=== PATIENT | male | born 1960 | race Caucasian/White ===

== ENCOUNTER 2017-05-05 15:28 | Inpatient (IN) | payer OTHER, MEDICARE ==
[~2017-05-05 15:28] MED LIST: ALBUTEROL SULFATE 2.5 MG/0.5 ML INH NEB SOLN INH; DEXTROSE 50% 50 ML SYRINGE IV; GLUCAGON FOR INJ 1 MG VIAL (J1610) SC; GLUCOSE 4 GM CHEW TABLET PO; zolPIDEM TARTRATE 5 MG TAB PO
[2017-05-05 16:21] LABS: BASO # 0.1 10^3/uL (0.0-0.2); BASO % 0.7 % (0.0-1.0); EOS # 0.4 10^3/uL (0.0-0.50); EOS % 3.8 % (0.0-3.0); HEMATOCRIT 44.8 % (42.0-52.0); HEMOGLOBIN 14.5 g/dl (14.0-18.0); IMMATURE GRANULOCYTE % 0.2 % (0-3.0); LYMPH # 1.6 10^3/uL (1.5-4.5); LYMPH % 17.2 % (24.0-44.0); MEAN CORPUSCULAR HEMOGLOBIN 28.3 pg (27.0-33.0); MEAN CORPUSCULAR HGB CONC 32.4 g/dl (32.0-36.5); MEAN CORPUSCULAR VOLUME 87.5 fl (80.0-96.0); MONO # 0.8 10^3/uL (0.0-0.8); MONO % 8.7 % (0.0-5.0); NEUTROPHILS # 6.6 10^3/uL (1.8-7.7); NEUTROPHILS % 69.4 % (36.0-66.0); PLATELET COUNT, AUTOMATED 264 10^3/uL (150-450); RED BLOOD COUNT 5.12 10^6/uL (4.30-6.10); RED CELL DISTRIBUTION WIDTH 14.6 % (11.5-14.5); WHITE BLOOD COUNT 9.5 10^3/uL (4.0-10.0)
[2017-05-05 16:34] LABS: INR 1.07
[2017-05-05 16:53] LABS: ALBUMIN 3.1 GM/DL (3.2-5.2); ALBUMIN/GLOBULIN RATIO 0.86 (1.00-1.93); ALKALINE PHOSPHATASE 375 U/L (45-117); ALT/SGPT 38 U/L (12-78); ANION GAP 8 MEQ/L (8-16); AST/SGOT 35 U/L (7-37); BLOOD UREA NITROGEN 22 MG/DL (7-18); CALCIUM LEVEL 8.7 MG/DL (8.5-10.1); CARBON DIOXIDE LEVEL 32 MEQ/L (21-32); CHLORIDE LEVEL 99 MEQ/L (98-107); CREATININE FOR GFR 1.12 MG/DL (0.70-1.30); GLOMERULAR FILTRATION RATE > 60.0 (>56); GLUCOSE, FASTING 192 MG/DL (70-100); MAGNESIUM LEVEL 1.9 MG/DL (1.8-2.4); POTASSIUM SERUM 3.7 MEQ/L (3.5-5.1); SODIUM LEVEL 139 MEQ/L (136-145); TOTAL PROTEIN 6.7 GM/DL (6.4-8.2); TROPONIN I 0.02 NG/ML (< 0.10)
[2017-05-05 16:57] LABS: THYROID STIMULATING HORMONE 0.342 uIU/ML (0.358-3.740)
[2017-05-05] MEDS: DIGOXIN INJ 0.5 MG/2 ML AMP (J1160) IV ×3 (17:17→20:14)
[2017-05-05] MEDS: METOPROLOL TART 25 MG TABLET PO (17:17)
[2017-05-05] MEDS: HumaLOG INSULIN (NovoLOG) PER UNIT SC ×2 (17:18→20:19)
[2017-05-05] MEDS: FUROSEMIDE 20 MG/2 ML VIAL (J1940) IV (17:18)
[2017-05-05] MEDS: ALBUTEROL SULFATE 2.5 MG/0.5 ML INH NEB SOLN INH (18:03)
[2017-05-05 18:12] LABS: APPEARANCE, URINE CLEAR (CLEAR); BACTERIA, URINE AUTO NEGATIVE (NEGATIVE); BILIRUBIN, URINE AUTO NEGATIVE (NEGATIVE); BLOOD, URINE BLOOD NEGATIVE (NEGATIVE); COLOR, URINE YELLOW (YELLOW); GLUCOSE, URINE (UA) AUTO 1+ mg/dL (NEGATIVE); KETONE, URINE AUTO NEGATIVE (NEGATIVE); LEUKOCYTE ESTERASE, URINE AUTO NEGATIVE (NEGATIVE); NITRITE, URINE AUTO NEGATIVE (NEGATIVE); PROTEIN, URINE AUTO 1+ mg/dL (NEGATIVE); RBC, URINE AUTO 1 /HPF (0-3); SPECIFIC GRAVITY URINE AUTO 1.013 (1.002-1.035); SQUAMOUS EPITHELIAL CELL UR AU 0 /HPF (0-6); WBC, URINE AUTO 0 /HPF (0-3)
[2017-05-05] MEDS: SPIRONOLACTONE 12.5MG PER 1/2 TABLET PO (18:32)
[2017-05-05] MEDS: ATORVASTATIN 20 MG TAB PO (20:10)
[2017-05-05] MEDS: DOCUSATE SODIUM 100 MG CAP PO (20:10)
[2017-05-05] MEDS: POTASSIUM CHLORIDE 10 MEQ SR TABLET PO (20:10)
[2017-05-05] MEDS: GABAPENTIN 300 MG CAP PO (20:10)
[2017-05-05] MEDS: APIXABAN 5 MG TAB (ELIQUIS) PO (20:11)
[2017-05-05] MEDS: LISINOPRIL 10 MG TAB PO (20:15)
[2017-05-05 20:50] LABS: BEDSIDE GLUCOSE 142 MG/DL (70-105)
[2017-05-05] MEDS ORDERED: ENOXAPARIN 40 MG/0.4 ML SYRINGE (J1650) SC (21:00)
[2017-05-06] MEDS: METOPROLOL TART 25 MG TABLET PO ×2 (00:23→05:04)
[2017-05-06] MEDS: FUROSEMIDE 20 MG/2 ML VIAL (J1940) IV ×5 (00:23→23:31)
[2017-05-06] MEDS: ACETAMINOPHEN TAB 650MG DOSE (2X325MG) PO (03:34)
[2017-05-06 06:29] LABS: ALBUMIN 2.9 GM/DL (3.2-5.2); ANION GAP 6 MEQ/L (8-16); BLOOD UREA NITROGEN 20 MG/DL (7-18); CALCIUM LEVEL 9.3 MG/DL (8.5-10.1); CARBON DIOXIDE LEVEL 31 MEQ/L (21-32); CHLORIDE LEVEL 103 MEQ/L (98-107); CREATININE FOR GFR 1.09 MG/DL (0.70-1.30); GLOMERULAR FILTRATION RATE > 60.0 (>56); GLUCOSE, FASTING 167 MG/DL (70-100); PHOSPHORUS LEVEL 3.6 MG/DL (2.5-4.9); POTASSIUM SERUM 3.5 MEQ/L (3.5-5.1); SODIUM LEVEL 140 MEQ/L (136-145); TROPONIN I 0.03 NG/ML (< 0.10)
[2017-05-06] MEDS: PANTOPRAZOLE 40MG TAB (PROTONIX) PO (08:05)
[2017-05-06] MEDS: POTASSIUM CHLORIDE 10 MEQ SR TABLET PO ×5 (08:05→20:28)
[2017-05-06] MEDS: HumaLOG INSULIN (NovoLOG) PER UNIT SC ×4 (08:05→20:26)
[2017-05-06] MEDS: SPIRONOLACTONE 12.5MG PER 1/2 TABLET PO (08:05)
[2017-05-06] MEDS: APIXABAN 5 MG TAB (ELIQUIS) PO ×2 (08:06→20:27)
[2017-05-06] MEDS: glipiZIDE (GLUCOTROL) 5 MG TAB PO ×2 (08:06→17:15)
[2017-05-06] MEDS: GABAPENTIN 300 MG CAP PO ×2 (08:06→20:27)
[2017-05-06] MEDS: DIGOXIN 0.25 MG TAB PO (08:06)
[2017-05-06] MEDS: LISINOPRIL 10 MG TAB PO ×2 (08:06→20:27)
[2017-05-06] MEDS: DOCUSATE SODIUM 100 MG CAP PO ×2 (08:07→20:27)
[2017-05-06] MEDS: ALBUTEROL SULFATE 2.5 MG/0.5 ML INH NEB SOLN INH ×4 (08:11→20:35)
[2017-05-06 11:43] LABS: BEDSIDE GLUCOSE 206 MG/DL (70-105)
[2017-05-06] MEDS: METOPROLOL TART 50 MG TAB PO ×3 (11:45→23:31)
[2017-05-06] MEDS ORDERED: METOPROLOL TART 50 MG TAB PO (12:00)
[2017-05-06 12:08] LABS: INR 1.29; PROTHROMBIN TIME 16.4 SECONDS (12.4-14.5)
[2017-05-06 17:01] LABS: BEDSIDE GLUCOSE 178 MG/DL (70-105)
[2017-05-06 20:23] LABS: BEDSIDE GLUCOSE 223 MG/DL (70-105)
[2017-05-06] MEDS: ATORVASTATIN 20 MG TAB PO (20:28)
[2017-05-07] MEDS: FUROSEMIDE 20 MG/2 ML VIAL (J1940) IV (05:24)
[2017-05-07] MEDS: METOPROLOL TART 50 MG TAB PO ×2 (05:25→08:06)
[2017-05-07 05:54] LABS: ALBUMIN 2.9 GM/DL (3.2-5.2); ANION GAP 6 MEQ/L (8-16); BLOOD UREA NITROGEN 26 MG/DL (7-18); CALCIUM LEVEL 9.1 MG/DL (8.5-10.1); CARBON DIOXIDE LEVEL 30 MEQ/L (21-32); CHLORIDE LEVEL 105 MEQ/L (98-107); CREATININE FOR GFR 1.12 MG/DL (0.70-1.30); GLOMERULAR FILTRATION RATE > 60.0 (>56); GLUCOSE, FASTING 232 MG/DL (70-100); PHOSPHORUS LEVEL 3.5 MG/DL (2.5-4.9); SODIUM LEVEL 141 MEQ/L (136-145)
[2017-05-07] MEDS: ALBUTEROL SULFATE 2.5 MG/0.5 ML INH NEB SOLN INH ×4 (06:59→20:23)
[2017-05-07] MEDS: HumaLOG INSULIN (NovoLOG) PER UNIT SC ×4 (08:02→20:26)
[2017-05-07] MEDS: glipiZIDE (GLUCOTROL) 5 MG TAB PO ×2 (08:04→17:16)
[2017-05-07] MEDS: DOCUSATE SODIUM 100 MG CAP PO ×2 (09:00→20:47)
[2017-05-07] MEDS: POTASSIUM CHLORIDE 10 MEQ SR TABLET PO ×4 (10:00→20:47)
[2017-05-07] MEDS: TORSEMIDE 20 MG TAB PO (10:00)
[2017-05-07] MEDS: SPIRONOLACTONE 12.5MG PER 1/2 TABLET PO (10:01)
[2017-05-07] MEDS: PANTOPRAZOLE 40MG TAB (PROTONIX) PO (10:01)
[2017-05-07] MEDS: GABAPENTIN 300 MG CAP PO ×2 (10:01→20:47)
[2017-05-07] MEDS: LISINOPRIL 10 MG TAB PO ×2 (10:03→20:47)
[2017-05-07] MEDS: APIXABAN 5 MG TAB (ELIQUIS) PO ×2 (10:03→20:45)
[2017-05-07] MEDS: DIGOXIN 0.25 MG TAB PO (10:05)
[2017-05-07 12:33] LABS: BEDSIDE GLUCOSE 300 MG/DL (70-105)
[2017-05-07 12:50] LABS: INR 1.21; PROTHROMBIN TIME 15.5 SECONDS (12.4-14.5)
[2017-05-07] MEDS ORDERED: SLF 3 ML SYR IV (13:45)
[2017-05-07] MEDS: SLF 3 ML SYR IV ×2 (14:27→20:47)
[2017-05-07 17:14] LABS: BEDSIDE GLUCOSE 269 MG/DL (70-105)
[2017-05-07] MEDS: METOPROLOL TARTRATE 100 MG TAB PO ×2 (17:57→23:21)
[2017-05-07 20:01] LABS: BEDSIDE GLUCOSE 231 MG/DL (70-105)
[2017-05-07] MEDS: ATORVASTATIN 20 MG TAB PO (20:47)
[2017-05-07] MEDS ORDERED: METOPROLOL TARTRATE 100 MG TAB PO (21:00)
[2017-05-08] MEDS: METOPROLOL TARTRATE 100 MG TAB PO ×3 (05:14→12:39)
[2017-05-08] MEDS: SLF 3 ML SYR IV ×2 (05:22→14:39)
[2017-05-08 06:19] LABS: ALBUMIN 2.9 GM/DL (3.2-5.2); ANION GAP 7 MEQ/L (8-16); BLOOD UREA NITROGEN 36 MG/DL (7-18); CALCIUM LEVEL 9.2 MG/DL (8.5-10.1); CARBON DIOXIDE LEVEL 30 MEQ/L (21-32); CHLORIDE LEVEL 102 MEQ/L (98-107); CREATININE FOR GFR 1.38 MG/DL (0.70-1.30); GLUCOSE, FASTING 259 MG/DL (70-100); PHOSPHORUS LEVEL 4.3 MG/DL (2.5-4.9); POTASSIUM SERUM 4.5 MEQ/L (3.5-5.1); SODIUM LEVEL 139 MEQ/L (136-145)
[2017-05-08] MEDS: ALBUTEROL SULFATE 2.5 MG/0.5 ML INH NEB SOLN INH ×3 (08:00→15:57)
[2017-05-08] MEDS: SPIRONOLACTONE 12.5MG PER 1/2 TABLET PO (08:02)
[2017-05-08] MEDS: metFORMIN (GLUCOPHAGE) 1000 MG TABLET PO ×2 (08:02→17:01)
[2017-05-08] MEDS: HumaLOG INSULIN (NovoLOG) PER UNIT SC ×2 (08:02→12:40)
[2017-05-08] MEDS: DIGOXIN 0.25 MG TAB PO (08:02)
[2017-05-08] MEDS: DOCUSATE SODIUM 100 MG CAP PO (08:03)
[2017-05-08] MEDS: glipiZIDE (GLUCOTROL) 5 MG TAB PO (08:03)
[2017-05-08] MEDS: LISINOPRIL 10 MG TAB PO (08:03)
[2017-05-08] MEDS: POTASSIUM CHLORIDE 10 MEQ SR TABLET PO ×2 (08:03→12:37)
[2017-05-08] MEDS: PANTOPRAZOLE 40MG TAB (PROTONIX) PO (08:03)
[2017-05-08] MEDS: APIXABAN 5 MG TAB (ELIQUIS) PO (08:04)
[2017-05-08] MEDS: GABAPENTIN 300 MG CAP PO (08:04)
[2017-05-08 11:39] LABS: BEDSIDE GLUCOSE 217 MG/DL (70-105)
== END 2017-05-08 17:37 | disposition home or self-care (01) | DRG 292 ==
LOC: M PCU 15:28
DX: I11.0 Hypertensive heart disease with heart failure (principal); I48.3 Typical atrial flutter; I42.0 Dilated cardiomyopathy; F17.210 Nicotine dependence, cigarettes, uncomplicated; E66.9 Obesity, unspecified; I50.43 Acute on chronic combined systolic (congestive) and diastolic (congestive) heart failure; J41.0 Simple chronic bronchitis; E78.00 Pure hypercholesterolemia, unspecified; R91.1 Solitary pulmonary nodule; N52.9 Male erectile dysfunction, unspecified; F32.9 Major depressive disorder, single episode, unspecified; G47.33 Obstructive sleep apnea (adult) (pediatric); Z79.84 Long term (current) use of oral hypoglycemic drugs; Z79.899 Other long term (current) drug therapy; Z88.0 Allergy status to penicillin; Z68.33 Body mass index [BMI] 33.0-33.9, adult

== ENCOUNTER 2023-01-12 10:19 | Inpatient (IN) | payer OTHER, MEDICARE ==
[~2023-01-12 10:19] MED LIST changes: +ALB2.5NEB INH; -ALBUTEROL SULFATE 2.5 MG/0.5 ML INH NEB SOLN INH; +ALDA25TA2 PO; -DEXTROSE 50% 50 ML SYRINGE IV; +DIGO0.253 PO; +ELIQ5TAB PO; +FURO20TA2 PO; +FURO40TA2 PO; +GABA-282 PO; +GLIP10TA6 PO; -GLUCAGON FOR INJ 1 MG VIAL (J1610) SC; -GLUCOSE 4 GM CHEW TABLET PO; +HYDR-3490 PO; +LISI10TA22 PO; +LISI20TA33 PO; +LOPR1TAB7 PO; +METF10004 PO; +METO50TA7 PO; +SIMV-254 PO; -zolPIDEM TARTRATE 5 MG TAB PO
[2023-01-12 12:21] LABS: BASO # 0.1 10^3/uL (0.0-0.2); BASO % 0.9 % (0.0-1.0); EOS # 0.2 10^3/uL (0.0-0.5); EOS % 2.1 % (0.0-3.0); HEMOGLOBIN 14.4 g/dl (13.5-17.5); LYMPH # 1.4 10^3/uL (1.5-5.0); LYMPH % 13.5 % (24.0-44.0); MEAN CORPUSCULAR HEMOGLOBIN 28.5 pg (27.0-33.0); MEAN CORPUSCULAR VOLUME 89.1 fl (80.0-96.0); MONO # 0.7 10^3/uL (0.0-0.8); MONO % 6.9 % (2.0-8.0); NEUTROPHILS # 7.6 10^3/uL (1.5-8.5); NEUTROPHILS % 76.2 % (36.0-66.0); PLATELET COUNT, AUTOMATED 248 10^3/uL (150-450); RED BLOOD COUNT 5.05 10^6/uL (4.30-6.10)
[2023-01-12 12:32] LABS: INR 1.07; PROTHROMBIN TIME 13.6 SECONDS (12.5-14.5)
[2023-01-12 12:33] LABS: PARTIAL THROMBOPLASTIN TIME 29.4 SECONDS (24.8-34.2)
[2023-01-12] MEDS ORDERED: FUROSEMIDE 100MG/10ML VIAL IV ONE (13:30)
[2023-01-12] MEDS ORDERED: ALBUTEROL SULFATE 2.5MG/0.5ML INH NEB SOLN NEB ONE (13:30)
[2023-01-12] MEDS ORDERED: ENOXAPARIN 40MG/0.4ML SYRINGE (J1650 PER 10MG) SC ONE (13:40)
[2023-01-12] MEDS ORDERED: FUROSEMIDE 40MG/4ML VIAL IV ONE (13:40)
[2023-01-12] MEDS ORDERED: MED REC IN PROGRESS XX SCH (14:05)
[2023-01-12] MEDS: DOXYCYCLINE HYCLATE 100MG TABLET PO SCH ×2 (14:21→20:11)
[2023-01-12] MEDS ORDERED: METO100T5 PO (14:39)
[2023-01-12] MEDS ORDERED: SIMV20TA22 PO (14:39)
[2023-01-12] MEDS ORDERED: SPIR-10 PO (14:39)
[2023-01-12] MEDS ORDERED: FURO20TA2 PO (14:39)
[2023-01-12] MEDS ORDERED: ENTR1TAB7 PO (14:39)
[2023-01-12] MEDS ORDERED: ELIQ5TAB PO (14:39)
[2023-01-12] MEDS ORDERED: HOME MED LIST COMPLETE! XX SCH (14:45)
[2023-01-12 15:14] VITALS: BP 131/89; TEMP 96.8; O2SAT 97
[2023-01-12] MEDS ORDERED: cefTRIAXone SOD 2 GM in D5W MINI-BAG PLUS 50 ML IV SCH (16:00)
[2023-01-12 16:21] VITALS: BP 140/86; TEMP 97.6; O2SAT 90
[2023-01-12] MEDS ORDERED: DEXTROSE 50% 50ML SYRINGE IV PRN (17:10)
[2023-01-12] MEDS ORDERED: GLUCAGON INJ 1MG VIAL SC PRN (17:10)
[2023-01-12] MEDS ORDERED: GLUCOSE 4GM CHEW TABLET PO PRN (17:10)
[2023-01-12] MEDS ORDERED: PILL CUTTER 1 EACH XX PRN (17:35)
[2023-01-12] MEDS: DAPAGLIFLOZIN PROPANEDIOL 10MG TABLET (FARXIGA) PO SCH (18:18)
[2023-01-12] MEDS: LACTOBACILLUS ACIDOPHILUS CAP (BACID) PO SCH (18:18)
[2023-01-12] MEDS: INSULIN LISPRO (NovoLOG) PER UNIT SC SCH ×2 (18:18→20:05)
[2023-01-12 19:44] VITALS: BP 125/75; TEMP 98.6; O2SAT 95
[2023-01-12] MEDS: LEVEMIR (INSULIN DETEMIR) 1 UNITS/0.01ML SC SCH (20:06)
[2023-01-12] MEDS: SIMVASTATIN 20 MG TAB PO SCH (20:12)
[2023-01-12] MEDS: FUROSEMIDE 40MG/4ML VIAL IV SCH (20:12)
[2023-01-12] MEDS: APIXABAN 5 MG TAB (ELIQUIS) PO SCH (20:12)
[2023-01-12] MEDS: GABAPENTIN 300 MG CAP PO SCH (20:12)
[2023-01-12] MEDS ORDERED: ENTRESTO 49-51MG TABLET (SACUBITRIL/VALSARTAN) PO SCH (21:00)
[2023-01-12] MEDS ORDERED: SIMVASTATIN 40 MG TAB PO SCH (21:00)
[2023-01-12] MEDS ORDERED: METOPROLOL TART 50 MG TAB PO SCH (21:00)
[2023-01-12 21:55] LABS: CK-MB VALUE MASS < 1.0 NG/ML (<3.6)
[2023-01-12 22:00] LABS: CPK CREATINE PHOSPHOKINASE 72 U/L (46-171); MB/CK RELATIVE INDEX 1.38 (< OR =4)
[2023-01-13 00:10] VITALS: BP 136/83; TEMP 97.1; O2SAT 95
[2023-01-13 01:47] LABS: HEMOGLOBIN A1c 8.7 % (4.0-6.0)
[2023-01-13 02:41] LABS: CK-MB VALUE MASS < 1.0 NG/ML (<3.6)
[2023-01-13 02:43] LABS: CPK CREATINE PHOSPHOKINASE 65 U/L (46-171); MB/CK RELATIVE INDEX 1.53 (< OR =4)
[2023-01-13 03:58] VITALS: BP 117/70; TEMP 97.4; O2SAT 94
[2023-01-13] MEDS: FUROSEMIDE 40MG/4ML VIAL IV SCH (04:00)
[2023-01-13 06:31] LABS: BASO # 0.1 10^3/uL (0.0-0.2); EOS # 0.4 10^3/uL (0.0-0.5); EOS % 3.8 % (0.0-3.0); HEMATOCRIT 45.9 % (42.0-52.0); LYMPH # 2.1 10^3/uL (1.5-5.0); LYMPH % 18.2 % (24.0-44.0); MEAN CORPUSCULAR HEMOGLOBIN 28.6 pg (27.0-33.0); MEAN CORPUSCULAR HGB CONC 32.7 g/dl (32.0-36.5); MEAN CORPUSCULAR VOLUME 87.6 fl (80.0-96.0); MONO % 8.6 % (2.0-8.0); NEUTROPHILS # 7.8 10^3/uL (1.5-8.5); NEUTROPHILS % 68.1 % (36.0-66.0); PLATELET COUNT, AUTOMATED 258 10^3/uL (150-450); RED BLOOD COUNT 5.24 10^6/uL (4.30-6.10); WHITE BLOOD COUNT 11.4 10^3/uL (4.0-10.0)
[2023-01-13 06:47] LABS: CALCIUM LEVEL 9.4 MG/DL (8.3-10.6); CHOLESTEROL RISK RATIO 3.81 (<5); CREATININE FOR GFR 1.56 MG/DL (0.70-1.30); GLOMERULAR FILTRATION RATE 48.6 (>49); HDL CHOLESTEROL 38.3 MG/DL (>40); LDL CHOLESTEROL 89.1 MG/DL (<100); MAGNESIUM LEVEL 1.7 MG/DL (1.8-2.4); NON-HDL-C 107.7 MG/DL; POTASSIUM SERUM 3.8 MMOL/L (3.5-5.1)
[2023-01-13 07:18] VITALS: BP 127/76; TEMP 96.3; O2SAT 96
[2023-01-13] MEDS: LACTOBACILLUS ACIDOPHILUS CAP (BACID) PO SCH ×3 (07:39→18:00)
[2023-01-13 07:40] LABS: PROCALCITONIN 0.07 ng/ml
[2023-01-13] MEDS: INSULIN LISPRO (NovoLOG) PER UNIT SC SCH ×4 (07:40→21:00)
[2023-01-13 08:22] LABS: CPK CREATINE PHOSPHOKINASE 70 U/L (30-170)
[2023-01-13 08:23] LABS: THYROID STIMULATING HORMONE 0.97 UIU/ML (0.47-5.01)
[2023-01-13] MEDS ORDERED: ENOXAPARIN 40MG/0.4ML SYRINGE (J1650 PER 10MG) SC SCH (09:00)
[2023-01-13] MEDS: GABAPENTIN 300 MG CAP PO SCH ×2 (09:36→21:14)
[2023-01-13] MEDS: DOXYCYCLINE HYCLATE 100MG TABLET PO SCH (09:36)
[2023-01-13] MEDS: APIXABAN 5 MG TAB (ELIQUIS) PO SCH ×2 (09:36→21:14)
[2023-01-13] MEDS: DAPAGLIFLOZIN PROPANEDIOL 10MG TABLET (FARXIGA) PO SCH (09:36)
[2023-01-13] MEDS: SPIRONOLACTONE 12.5MG PER 1/2 TABLET PO SCH (09:36)
[2023-01-13] MEDS: METOPROLOL TARTRATE 100MG TAB PO SCH ×2 (09:37→21:14)
[2023-01-13 10:41] LABS: ALKALINE PHOSPHATASE 172 U/L (40-129); ALT/SGPT 22 U/L (1-41); AST/SGOT 22 U/L (5-40); BILIRUBIN,DIRECT 0.2 MG/DL (0.1-0.4); BILIRUBIN,TOTAL < 0.7 MG/DL (0.2-1.3); BLOOD UREA NITROGEN 24 MG/DL (7-21); CALCIUM LEVEL 9.4 MG/DL (8.8-10.2); CARBON DIOXIDE LEVEL 28 MEQ/L (22-30); CHLORIDE LEVEL 98 MEQ/L (98-107); CREATININE FOR GFR 1.3 MG/DL (0.7-1.5); GLOMERULAR FILTRATION RATE 59.9 (>49); GLUCOSE, FASTING 255 MG/DL; POTASSIUM SERUM 4.2 MEQ/L (3.6-5.0); SODIUM LEVEL 135 MEQ/L (134-153)
[2023-01-13 10:42] LABS: ALBUMIN 3.7 G/DL (3.9-5.0); TOTAL PROTEIN 6.9 G/DL (6.3-8.2)
[2023-01-13] MEDS ORDERED: POTASSIUM CHLORIDE 10MEQ SR TABLET PO ONE (11:00)
[2023-01-13 11:52] VITALS: BP 135/83; TEMP 98.1; O2SAT 95
[2023-01-13] MEDS: MAG SULF 1GM/100ML (MAG RUN) 1 GM in IV 1 EA IV SCH ×2 (12:07→13:34)
[2023-01-13] MEDS ORDERED: FUROSEMIDE 40MG/4ML VIAL IV SCH (15:00)
[2023-01-13 15:54] VITALS: BP 139/78; TEMP 96.3; O2SAT 96
[2023-01-13 19:29] VITALS: BP 128/70; TEMP 98.1; O2SAT 93
[2023-01-13] MEDS ORDERED: ALBUTEROL SULFATE 2.5MG/0.5ML INH NEB SOLN NEB PRN (19:40)
[2023-01-13] MEDS: LEVEMIR (INSULIN DETEMIR) 1 UNITS/0.01ML SC SCH (21:13)
[2023-01-13] MEDS: SIMVASTATIN 20 MG TAB PO SCH (21:13)
[2023-01-14 00:35] VITALS: BP 142/95; TEMP 98.2; O2SAT 94
[2023-01-14 04:22] VITALS: BP 138/94; TEMP 97.6; O2SAT 93
[2023-01-14 05:05] LABS: BASO # 0.1 10^3/uL (0.0-0.2); BASO % 1.1 % (0.0-1.0); EOS # 0.5 10^3/uL (0.0-0.5); EOS % 4.1 % (0.0-3.0); HEMATOCRIT 49.7 % (42.0-52.0); HEMOGLOBIN 15.6 g/dl (13.5-17.5); LYMPH # 2.4 10^3/uL (1.5-5.0); LYMPH % 21.7 % (24.0-44.0); MEAN CORPUSCULAR HGB CONC 31.4 g/dl (32.0-36.5); MEAN CORPUSCULAR VOLUME 89.1 fl (80.0-96.0); MONO # 1.1 10^3/uL (0.0-0.8); MONO % 10.1 % (2.0-8.0); NEUTROPHILS % 62.7 % (36.0-66.0); PLATELET COUNT, AUTOMATED 279 10^3/uL (150-450); RED BLOOD COUNT 5.58 10^6/uL (4.30-6.10); WHITE BLOOD COUNT 11.1 10^3/uL (4.0-10.0)
[2023-01-14 05:25] LABS: CALCIUM LEVEL 9.3 MG/DL (8.3-10.6); CREATININE FOR GFR 1.55 MG/DL (0.70-1.30); GLOMERULAR FILTRATION RATE 48.9 (>49); MAGNESIUM LEVEL 2.1 MG/DL (1.8-2.4); POTASSIUM SERUM 3.9 MMOL/L (3.5-5.1)
[2023-01-14 07:28] LABS: PHOSPHORUS LEVEL 5.5 MG/DL (2.4-5.1)
[2023-01-14 08:03] VITALS: BP 125/72; TEMP 97.9; O2SAT 94
[2023-01-14 08:56] VITALS: BP 125/72
[2023-01-14] MEDS: INSULIN LISPRO (NovoLOG) PER UNIT SC SCH ×2 (08:56→12:00)
[2023-01-14] MEDS: GABAPENTIN 300 MG CAP PO SCH (08:56)
[2023-01-14] MEDS: METOPROLOL TARTRATE 100MG TAB PO SCH (08:56)
[2023-01-14] MEDS: SPIRONOLACTONE 12.5MG PER 1/2 TABLET PO SCH (08:56)
[2023-01-14] MEDS: LACTOBACILLUS ACIDOPHILUS CAP (BACID) PO SCH ×2 (08:56→13:02)
[2023-01-14] MEDS: APIXABAN 5 MG TAB (ELIQUIS) PO SCH (08:56)
[2023-01-14] MEDS ORDERED: DAPAGLIFLOZIN PROPANEDIOL 10MG TABLET (FARXIGA) PO SCH (09:00)
[2023-01-14] MEDS ORDERED: FURO20TA2 PO (10:32)
[2023-01-14] MEDS ORDERED: ROSU40TA4 PO (10:32)
[2023-01-14] MEDS ORDERED: METO100T5 PO (10:32)
[2023-01-14] MEDS ORDERED: FARX1TAB3 PO (10:32)
[2023-01-14] MEDS ORDERED: METO25TA PO (10:37)
[2023-01-14 11:49] VITALS: BP 139/83; TEMP 96.5; O2SAT 96
[2023-01-14] MEDS ORDERED: ROSUVASTATIN 10 MG TAB (CRESTOR) PO SCH (21:00)
[2023-01-15 14:09] LABS: BODY FLUID CULTURE Not indicated. (.); LEGIONELLA ANTIGEN URINE Negative (Negative); ORGANISM ID Not indicated. (.); SPECIMEN SOURCE Urine (.); URINE STREP PNEUMONIAE ANTIGEN Negative (Negative)
== END 2023-01-14 14:25 | disposition home health service (06) | DRG 291 ==
LOC: M ED 10:19 → M ED INP 13:40 → ENRESERV 14:17 → M PCU 15:10
PROVIDERS: ADMIT General Practice; ATTEND General Practice
PROC: B246ZZZ Ultrasonography of Right and Left Heart (ICD-10-PCS; principal; 2023-01-13)
DX: I13.0 Hypertensive heart and chronic kidney disease with heart failure and stage 1 through stage 4 chronic kidney disease, or unspecified chronic kidney disease (principal); I50.23 Acute on chronic systolic (congestive) heart failure; I48.92 Unspecified atrial flutter; N17.9 Acute kidney failure, unspecified; G47.33 Obstructive sleep apnea (adult) (pediatric); F17.210 Nicotine dependence, cigarettes, uncomplicated; I27.20 Pulmonary hypertension, unspecified; E66.9 Obesity, unspecified; I25.10 Atherosclerotic heart disease of native coronary artery without angina pectoris; I25.2 Old myocardial infarction; E78.5 Hyperlipidemia, unspecified; E11.22 Type 2 diabetes mellitus with diabetic chronic kidney disease; F32.A Depression, unspecified; N18.9 Chronic kidney disease, unspecified; E11.42 Type 2 diabetes mellitus with diabetic polyneuropathy; J44.9 Chronic obstructive pulmonary disease, unspecified; N52.9 Male erectile dysfunction, unspecified; R91.1 Solitary pulmonary nodule; M51.36 Other intervertebral disc degeneration, lumbar region; G43.909 Migraine, unspecified, not intractable, without status migrainosus; Z86.73 Personal history of transient ischemic attack (TIA), and cerebral infarction without residual deficits; Z79.01 Long term (current) use of anticoagulants; Z79.84 Long term (current) use of oral hypoglycemic drugs; Z79.899 Other long term (current) drug therapy; Z91.119 Patient's noncompliance with dietary regimen due to unspecified reason; Z88.0 Allergy status to penicillin

== ENCOUNTER → 2023-05-20 | Outpatient (CLI) | payer MEDICAID, MEDICARE, OTHER ==
[~2023-05-20] MED LIST changes: +ENTR1TAB7 PO; +FARX1TAB3 PO; +METO100T5 PO; +METO25TA PO; +ROSU40TA4 PO; +SIMV20TA22 PO; +SPIR-10 PO
== END ==
LOC: M PLAIMG 09:46
PROVIDERS: ATTEND Internal Medicine Cardiovascular Disease
DX: I50.42 Chronic combined systolic (congestive) and diastolic (congestive) heart failure (principal); R94.31 Abnormal electrocardiogram [ECG] [EKG]; I35.9 Nonrheumatic aortic valve disorder, unspecified

== ENCOUNTER → 2023-11-16 | Outpatient (CLI) | payer OTHER ==
[~2023-11-16] MED LIST changes: -ROSU40TA4 PO; +ROSU40TA63 PO
== END ==
LOC: M PLAIMG 10:16
PROVIDERS: ATTEND Internal Medicine Cardiovascular Disease
DX: I50.42 Chronic combined systolic (congestive) and diastolic (congestive) heart failure (principal)

== ENCOUNTER → 2024-01-15 | Outpatient (CLI) | payer OTHER ==
[~2024-01-15] MED LIST changes: +GABA-1172 PO; -GABA-282 PO; +GLIP10TA15 PO; -GLIP10TA6 PO; -ROSU40TA63 PO; +ROSU40TA81 PO
[2024-01-15 10:32] LABS: BASO # 0.1 10^3/uL (0.0-0.2); EOS # 0.4 10^3/uL (0.0-0.5); EOS % 3.6 % (0.0-3.0); HEMATOCRIT 53.8 % (42.0-52.0); HEMOGLOBIN 17.4 g/dl (13.5-17.5); LYMPH # 2.2 10^3/uL (1.5-5.0); LYMPH % 19.8 % (24.0-44.0); MEAN CORPUSCULAR HEMOGLOBIN 28.7 pg (27.0-33.0); MEAN CORPUSCULAR HGB CONC 32.3 g/dl (32.0-36.5); MEAN CORPUSCULAR VOLUME 88.6 fl (80.0-96.0); MONO # 0.8 10^3/uL (0.0-0.8); MONO % 7.4 % (2.0-8.0); NEUTROPHILS # 7.6 10^3/uL (1.5-8.5); NEUTROPHILS % 67.7 % (36.0-66.0); PLATELET COUNT, AUTOMATED 182 10^3/uL (150-450); RED BLOOD COUNT 6.07 10^6/uL (4.30-6.10); WHITE BLOOD COUNT 11.2 10^3/uL (4.0-10.0)
[2024-01-15 10:48] LABS: ALBUMIN 3.5 G/DL (3.2-5.2); ALKALINE PHOSPHATASE 142 U/L (40-129); ALT/SGPT 19 U/L (7.0-40); AST/SGOT 20 U/L (<34); BILIRUBIN,TOTAL 0.4 MG/DL (0.3-1.2); BLOOD UREA NITROGEN 26 MG/DL (9-23); CALCIUM LEVEL 9.8 MG/DL (8.3-10.6); CARBON DIOXIDE LEVEL 26 MMOL/L (20-31); CHLORIDE LEVEL 106 MMOL/L (98-107); CREATININE FOR GFR 1.29 MG/DL (0.70-1.30); GLOMERULAR FILTRATION RATE > 60.0 (>49); GLUCOSE, FASTING 200 MG/DL (74-106); POTASSIUM SERUM 4.2 MMOL/L (3.5-5.1); SODIUM LEVEL 139 MMOL/L (136-145); TOTAL PROTEIN 7.4 G/DL (5.7-8.2)
== END ==
LOC: M LAB 09:32
PROVIDERS: ATTEND Internal Medicine Cardiovascular Disease
DX: I50.42 Chronic combined systolic (congestive) and diastolic (congestive) heart failure (principal); I11.0 Hypertensive heart disease with heart failure; I08.0 Rheumatic disorders of both mitral and aortic valves